=== PATIENT | female | born 1955 | race Caucasian/White ===

== ENCOUNTER 2018-12-13 06:37 | Day surgery (SDC) | payer MEDICARE ==
[2018-12-12 10:46] VITALS: BMI 34.7
[2018-12-13 07:26] VITALS: RESP 19; TEMP 97.6; O2SAT 100
--- NOTE | 2018-12-13 08:53 | CP.SDSHP ---
Same Day Surgery H & P - History Proposed Procedure: EGD & COLOMSCOPY Pre-Op Diagnosis: SEE NOTES - Previous Medical/Surgical History Cardiac: Hypertension Endocrine/Metabolic: Diabetes, Other Misc: Other Pain: 4.Moderate Pain - Allergies Allergies: Allergies No Known Allergies Allergy (Unverified 09/28/13 08:57) - Physical Exam General Appearance: N Vital Signs: Vital Signs 12/13/18 07:00 Temperature 97.6 F Pulse Rate 74 Respiratory 19 Rate Blood Pressure 154/80 H O2 Sat by Pulse 100 Oximetry Mental Status: Alert & Oriented x3 Neuro: WNL Heart: Other Lungs: WNL GI: Other - {Optional Preform as Required} Breast: WNL Abdomen: Other Rectal: Other Integument: WNL : WNL Ortho: WNL ENT: WNL - Impression Pt. Evaluated Today:Candidate for Anesthesia & Procedure: Yes - Date & Time Time: 08:53 Short Stay Discharge - Short Stay Discharge Admitting Diagnosis/Reason for Visit: ANEMIA Disposition: HOME/ ROUTINE
[2018-12-13] MEDS ORDERED: Propofol 10 mg/ml Inj (20 ML) ONE (09:16)
[2018-12-13] MEDS ORDERED: Lactated Ringer's 1,000 ML IV ONE (09:20)
[2018-12-13] MEDS ORDERED: Belladonna-Phenobarbital PO ONE (10:00)
[2018-12-13 10:56] VITALS: BP 129/67; PULSE 69
== END 2018-12-13 10:56 | disposition home or self-care (01) ==
LOC: C.ENDO 06:37
PROVIDERS: ATTEND Specialist
DX: D12.4 Benign neoplasm of descending colon (principal); K29.50 Unspecified chronic gastritis without bleeding; K31.7 Polyp of stomach and duodenum; K52.9 Noninfective gastroenteritis and colitis, unspecified; D50.9 Iron deficiency anemia, unspecified; K64.8 Other hemorrhoids; K64.4 Residual hemorrhoidal skin tags; K44.9 Diaphragmatic hernia without obstruction or gangrene; I10 Essential (primary) hypertension; E11.9 Type 2 diabetes mellitus without complications; E78.5 Hyperlipidemia, unspecified
CPT/HCPCS: 43239; 45380; 45385; 82948; 88305; 88342; J2704; J7120